=== PATIENT | female | born 1990 | race Two or more races ===

== ENCOUNTER 2024-03-08 11:53 | Inpatient (IN) | payer OTHER ==
[~2024-03-08] VITALS: Ht 157.5 cm; Wt 98.0 kg
[2024-03-08 11:24] VITALS: BP 127/78; O2SAT 97
[2024-03-08] MEDS ORDERED: FAMOTIDINE/PF 20 MG in 0.9 % SODIUM CHLORIDE 100 ML IV SCH (12:12)
[2024-03-08] MEDS ORDERED: ACETAMINOPHEN 500 MG GEL..CAP PO PRN (12:15)
[2024-03-08] MEDS ORDERED: IBUPROFEN800 MG PO (12:23)
[2024-03-08] MEDS ORDERED: IBUprofen 800 MG TABLET PO PRN (12:30)
[2024-03-08 13:00] LABS: HEMATOCRIT 31.7 % (36.0-45.00); HEMOGLOBIN 10.7 g/dL (12.0-15.00); MEAN CELL VOLUME 84.2 fL (80.00-100.00); MEAN CORPUSCULAR HEMOGLOBIN 28.5 pg (27.00-32.0); MEAN CORPUSCULAR HGB CONC 33.8 g/dl (32.0-36.0); PLATELET COUNT 157 K/uL (150-450); RED BLOOD COUNT 3.76 M/uL (4.00-6.00); RED CELL DISTRIBUTION WIDTH 14.3 % (11.5-14.5)
[2024-03-08] MEDS ORDERED: KETOROLAC TROMETHAMINE 30 MG VIAL IV NR (13:00)
[2024-03-08] MEDS ORDERED: KETOROLAC TROMETHAMINE 30 MG VIAL IM NR (13:00)
[2024-03-08 13:37] LABS: INR 1.05; PARTIAL THROMBOPLASTIN TIME 31.2 SECONDS (22.0-34.0); PROTHROMBIN TIME 11.4 SECONDS (9.0-11.5)
[2024-03-08 14:38] LABS: ALBUMIN 2.7 gm/dL (3.4-5.0); BILIRUBIN TOTAL 0.4 mg/dL (0.3-1.2); CALCIUM 8.3 mg/dL (8.5-10.1); CREATININE SERUM 0.58 mg/dL (0.55-1.02); GFR 119.72; GLOBULINA 3.3 G/DL (2.4-3.5); POTASSIUM 4.21 mEq/L (3.5-5.1)
[2024-03-08 14:40] LABS: PH,URINE 7.5 (5.0-8.0); URINE APPEARANCE Clear; URINE BILIRRUBIN Negative (NEGATIVE); URINE BLOOD Small; URINE COLOR Yellow; URINE GLUCOSE Negative (NEGATIVE); URINE KETONE Negative (NEGATIVE); URINE LEUKOCYTE Trace; URINE NITRATE Negative; URINE PROTEIN Negative (NEGATIVE); URINE UROBILINOGEN 0.2 E.U./dl
[2024-03-08 14:41] LABS: URINE BACTERIA 124.7 uL (0.0-1933); URINE EPITHELIAL CELLS 6.1 uL (0.0-38.8); URINE RBC 1.9 uL (0.0-20.8); URINE WBC 25.6 uL (0.0-23.2)
[2024-03-08 14:58] LABS: URIC ACID 4.2 mg/dL (2.5-7.5)
[2024-03-08 15:41] VITALS: BP 101/70; O2SAT 99
[2024-03-08] MEDS ORDERED: KETOROLAC TROMETHAMINE 30 MG VIAL IV PRN (17:15)
[2024-03-08] MEDS ORDERED: PANTOPRAZOLE SODIUM 40 MG/VIAL VIAL IV SCH (17:34)
[2024-03-08] MEDS ORDERED: SUCRALFATE 1 G TABLET PO SCH (17:36)
[2024-03-08 19:40] VITALS: BP 107/67; O2SAT 98
[2024-03-08 23:00] VITALS: BP 112/75; O2SAT 99
[2024-03-09 03:53] VITALS: BP 116/74; O2SAT 99
[2024-03-09 07:04] LABS: HEMATOCRIT 28.3 % (36.0-45.00); HEMOGLOBIN 9.6 g/dL (12.0-15.00); MEAN CELL VOLUME 85.4 fL (80.00-100.00); MEAN CORPUSCULAR HEMOGLOBIN 28.8 pg (27.00-32.0); MEAN CORPUSCULAR HGB CONC 33.8 g/dl (32.0-36.0); PLATELET COUNT 150 K/uL (150-450); RED BLOOD COUNT 3.32 M/uL (4.00-6.00); RED CELL DISTRIBUTION WIDTH 14.3 % (11.5-14.5)
[2024-03-09 07:27] VITALS: BP 126/78; O2SAT 97
[2024-03-09 11:50] VITALS: BP 122/66
[2024-03-09] MEDS ORDERED: RINGERS SOLUTION,LACTATED 1,000 ML IV SCH (12:30)
[2024-03-09 13:19] VITALS: BP 133/80; O2SAT 97
[2024-03-09 16:12] VITALS: BP 137/80
[2024-03-09] MEDS ORDERED: SUCRALFATE 1 G TABLET PO SCH (17:00)
[2024-03-09] MEDS ORDERED: CARAFATE1 GM PO (17:21)
[2024-03-09] MEDS ORDERED: PROTONIX40 MG PO (17:22)
[2024-03-09] MEDS ORDERED: NAPROXEN500 MG PO (17:23)
== END 2024-03-09 17:56 | disposition home or self-care (01) | DRG 776 ==
LOC: LDR 11:53 → OB/GYN 03-09 10:30
PROVIDERS: ADMIT Obstetrics & Gynecology; ATTEND Obstetrics & Gynecology
PROC: BW40ZZZ Ultrasonography of Abdomen (ICD-10-PCS; principal; 2024-03-08)
PROC: BW21YZZ Computerized Tomography (CT Scan) of Abdomen and Pelvis using Other Contrast (ICD-10-PCS; 2024-03-08)
PROC: BU4CZZZ Ultrasonography of Uterus and Ovaries (ICD-10-PCS; 2024-03-09)
DX: O90.89 Other complications of the puerperium, not elsewhere classified (principal); Z20.822 Contact with and (suspected) exposure to COVID-19; K80.20 Calculus of gallbladder without cholecystitis without obstruction